=== PATIENT | female | born 1960 | race Hispanic/Latino ===

== ENCOUNTER 2017-07-29 11:54 | Outpatient (CLI) | payer BC | END 2017-07-29 11:55 | disposition home or self-care (01) | LOC: BICMAMMO 11:54 | PROVIDERS: ATTEND Internal Medicine | DX: Z12.31 Encounter for screening mammogram for malignant neoplasm of breast (principal) | CPT/HCPCS: 77067 ==

== ENCOUNTER 2017-11-15 13:39 | Outpatient (CLI) | payer BC ==
--- NOTE | 2017-11-15 15:56 | ULT ---
HEPATIC ULTRASOUND: 11/15/17 HISTORY: Abnormal liver function test. TECHNIQUE: Galvez scale images are obtained. Color doppler with spectral analysis performed on the hepatic vessels . Liver has normal echotexture and size. Doppler studies show normal flow in the hepatic vein, portal v eins, hepatic artery and splenic veins. Spleen is unremarkable in size and appearance. The patient is post cholecystectomy. The common bile duct is measured at 7 mm. Pancreas is partially imaged and appears unremarkable as visualized. Right kidney is not imaged. IMPRESSION: Unremarkable hepatic ultrasound and doppler. POS: [facility]
== END 2017-11-15 13:40 | disposition home or self-care (01) ==
LOC: BICULT 13:39
PROVIDERS: ATTEND Internal Medicine Gastroenterology
DX: R94.5 Abnormal results of liver function studies (principal)
CPT/HCPCS: 76705

== ENCOUNTER 2017-12-21 15:15 | Outpatient (CLI) | payer BC ==
--- NOTE | 2017-12-21 17:29 | ULT ---
RENAL ULTRASOUND: 12/21/17 HISTORY: Abnormality on left kidney on CT scan of 02/29/16. FINDINGS: The right kidney measures 11.6 cm in length and the left kidney measures 10.7 cm in length. No hydron ephrosis seen on either side. There is a 2 cm cyst in the inferior pole of the left kidney. The urina ry bladder is unremarkable with a volume of 131 mL. IMPRESSION: Left renal cyst. POS: [facility]
== END 2017-12-21 15:16 | disposition home or self-care (01) ==
LOC: BICULT 15:15
PROVIDERS: ATTEND Internal Medicine Gastroenterology
DX: K75.81 Nonalcoholic steatohepatitis (NASH) (principal); N28.89 Other specified disorders of kidney and ureter; N28.1 Cyst of kidney, acquired
CPT/HCPCS: 76770

== ENCOUNTER 2019-02-01 14:29 | Outpatient (CLI) | payer BC ==
--- NOTE | 2019-02-01 15:32 | MMO ---
Bilateral MAMMO Bilat Screen [facility]. CLINICAL HISTORY: Patient is 58 years old and is seen for screening. The patient has the following family history of breast cancer: sister, at age 70; sister, at age 54 and daughter, at age 38. The patient has no personal history of cancer. VIEWS: The views performed were: bilateral craniocaudal with tomosynthesis and bilateral mediolateral oblique with tomosynthesis. FILMS COMPARED: The present examination has been compared to prior imaging studies performed at [facility] on 10/02/2013, 06/24/2015, 06/24/2016 and 07/29/2017. This study has been interpreted with the assistance of computer-aided detection. MAMMOGRAM FINDINGS: The breasts are heterogeneously dense, which could obscure a lesion on mammography. There are no suspicious masses, suspicious calcifications, or new areas of architectural distortion. IMPRESSION: THERE IS NO MAMMOGRAPHIC EVIDENCE OF MALIGNANCY. A ROUTINE FOLLOW-UP MAMMOGRAM IN 1 YEAR IS RECOMMENDED. THE RESULTS OF THIS EXAM WERE SENT TO THE PATIENT. ACR BI-RADS Category 1 - Negative MAMMOGRAPHY NOTE: 1. A negative mammogram report should not delay a biopsy if a dominant of clinically suspicious mass is present. 2. Approximately 10% to 15% of breast cancers are not detected by mammography. 3. Adenosis and dense breasts may obscure an underlying neoplasm. Reported by: MIKAEL LUNA MD Electonically Signed: [id number]
--- NOTE | 2019-02-01 15:41 | BD ---
Exam: DEXA Bone Density 02/01/19 INDICATIONS: Postmenopausal screening. Lumbar Spine: BMD (g/cm2) T-SCORE L1 1.033 0.4 L2 1.061 0.3 L3 1.115 0.3 L4 1.221 1.5 L1-L4 1.122 0.7 Femoral Neck: 0.731 -1.1 Total Femur: 0.915 -0.2 Impression: 1. Bone mineral density of the femoral neck indicates osteopenia. 2. Bone mineral density of the lumbar spine within normal range. Ten year fracture risk: Major osteoporotic fracture: 5.1%. Hip fracture: 0.3%. POS: [facility]
== END 2019-02-01 14:30 | disposition home or self-care (01) ==
LOC: BICMAMMO 14:29
PROVIDERS: ATTEND Internal Medicine
DX: Z12.31 Encounter for screening mammogram for malignant neoplasm of breast (principal); Z13.820 Encounter for screening for osteoporosis; M85.859 Other specified disorders of bone density and structure, unspecified thigh; Z80.3 Family history of malignant neoplasm of breast
CPT/HCPCS: 77063; 77067; 77080

== ENCOUNTER 2020-04-09 10:19 | Outpatient (CLI) | payer BC ==
[2020-04-09 11:36] LABS: Bilirubin Neg (Negative); Blood, Urine Negative (Negative); Glucose, Urine (Dipstick) Normal (Negative); Ketone, Urine Negative (Negative); Leukocyte Negative (Negative); Nitrite Negative (Negative); Protein, Urine (Dipstick) Negative (Neg-Trace); Urobilinogen Normal mg/dL (Less than 2)
[2020-04-09 11:37] LABS: Clarity Clear (Clear)
[2020-04-09 11:50] LABS: #Eosinphils 0.1 10x3/uL (0.0-0.5); #Monocytes 0.6 10x3/uL (0.0-1.1); #Neutrophils 4.9 10x3/uL (1.5-8.4); %Basophils 0.3 % (0.0-2.0); %Eosinophils 0.5 % (0.0-6.0); %Lymphocytes 39.3 % (18.0-47.0); %Monocytes 6.6 % (0.0-10.0); Hemoglobin 14.3 g/dL (12.0-15.5); Mean Corpuscular HGB CONC 31.9 g/dL (32.0-36.0); Mean Corpuscular Hemoglobin 28.9 pg (27.0-33.0); Mean Corpuscular Volume 90.7 fl (81.6-98.3); Mean Platelet Volume 9.5 fl (7.4-10.4); Platelet Count 377 10x3/uL (150-450); Red Blood Cell (RBC) Count 4.94 10x6/uL (3.90-5.03); White Blood Cell (WBC) Count 9.2 10x3/uL (3.5-10.5)
[2020-04-09 11:52] LABS: ALT (SGPT) 23 U/L (8-55); AST (SGOT) 25 U/L (5-34); Albumin 4.6 g/dL (3.4-4.8); Alkaline Phosphatase 111 U/L (40-110); Anion Gap 15 mmol/L (10-20); BUN (Urea Nitrogen) 19 mg/dL (9.8-20.1); Bilirubin, Total 0.3 mg/dL (0.2-1.2); Calc. Creatinine Clearance 0 mL/min (70-130); Calcium 10.2 mg/dL (7.8-10.44); Carbon Dioxide 28 mmol/L (23-31); Chloride 103 mmol/L (98-107); Globulin 3.7 g/dL (2.4-3.5); Glucose 104 mg/dL (80-115); Potassium 4.1 mmol/L (3.5-5.1); Protein, Total 8.3 g/dL (5.8-8.1); Sodium 142 mmol/L (136-145)
[2020-04-09 12:04] LABS: Prothrombin Time 10.4 sec (9.5-12.1)
[2020-04-09 14:03] LABS: Bacteria/HPF None Seen HPF (None Seen); RBC/HPF None Seen HPF (0-3); Squamous Epithelial 0-3 HPF (0-3); WBC/HPF None Seen HPF (0-3)
[2020-04-09 17:36] LABS: Hemoglobin A1c 6.4 % (4.0-6.0)
[2020-04-09 21:49] LABS: SARS-CoV-2 PCR by NAA DETECTED (NotDetected)
== END 2020-04-09 10:20 | disposition home or self-care (01) ==
LOC: LABBT 10:19
PROVIDERS: ATTEND Orthopaedic Surgery
DX: U07.1 COVID-19 (principal); M17.0 Bilateral primary osteoarthritis of knee
CPT/HCPCS: 80053; 81001; 83036; 85025; 85610; 87081; 87635; 93005; 93010; U0003; U0005

== ENCOUNTER 2020-04-09 10:45 | Inpatient (IN) | payer BC ==
[2020-05-13] MEDS ORDERED: Fentanyl 100 MCG/2 ML VIAL ONE ×4 (05:49→09:21)
[2020-05-13] MEDS ORDERED: Tranexamic Acid 1,000 MG/10 ML VIAL ONE (06:12)
[2020-05-13] MEDS ORDERED: Vancomycin 1 GM/200 ML BAG ONE ×2 (06:12→06:13)
[2020-05-13] MEDS ORDERED: Sodium Chloride 0.9% 100 ML ONE (06:13)
[2020-05-13] MEDS ORDERED: Midazolam HCl 2 mg/2 ml Vial ONE (06:30)
[2020-05-13] MEDS ORDERED: Fentanyl 100 MCG/2 ML VIAL SLOW IVP PRN ×2 (07:13)
[2020-05-13] MEDS ORDERED: diphenhydrAMINE 25 MG CAP PO PRN ×2 (07:13→07:30)
[2020-05-13] MEDS ORDERED: Ondansetron PF 4 MG/2 ML Vial IVP PRN ×2 (07:13→07:30)
[2020-05-13] MEDS ORDERED: Zolpidem Tartrate 5 MG TAB PO PRN ×2 (07:13→07:30)
[2020-05-13] MEDS ORDERED: Acetaminophen 325 MG TAB PO PRN (07:13)
[2020-05-13] MEDS ORDERED: HYDROcodone/Acetaminophen 10/325 mg Tablet PO PRN ×2 (07:13)
[2020-05-13] MEDS ORDERED: Promethazine HCl 25 MG/ML VIAL IM PRN ×2 (07:13→07:30)
[2020-05-13] MEDS ORDERED: traMADol HCl 50 MG TAB PO PRN ×3 (07:15→07:30)
[2020-05-13] MEDS ORDERED: Lidocaine 1% PF 5 ML VIAL ONE (07:19)
[2020-05-13] MEDS ORDERED: ePHEDrine Sulfate 50 MG/10 ML VIAL ONE (07:19)
[2020-05-13] MEDS ORDERED: PROPOFOL 200 MG/20 ML VIAL ONE (07:19)
[2020-05-13] MEDS ORDERED: Dexamethasone 20 MG/5 ML VIAL ONE (07:19)
[2020-05-13] MEDS ORDERED: Ondansetron PF 4 MG/2 ML Vial ONE (07:19)
[2020-05-13] MEDS ORDERED: HYDROcodone/Acetaminophen 5/325 mg Tablet PO PRN (07:30)
[2020-05-13] MEDS ORDERED: diphenhydrAMINE 50 MG/ML VIAL IM PRN (07:30)
[2020-05-13] MEDS ORDERED: Promethazine HCl 25 MG SUPP PR PRN (07:30)
[2020-05-13] MEDS ORDERED: Bupivacaine 0.25% 10 ML VIAL EPIDURAL PRN (07:30)
[2020-05-13] MEDS ORDERED: Naloxone HCl 0.4 mg/ml Vial IVP PRN (07:30)
[2020-05-13] MEDS ORDERED: Naloxone HCl 0.4 mg/ml Vial IV PRN (07:30)
[2020-05-13] MEDS ORDERED: diphenhydrAMINE 50 MG/ML VIAL IVP PRN (07:30)
[2020-05-13] MEDS ORDERED: Hydrocerin (Eucerin) Cream 120 gm Jar TOP PRN (07:30)
[2020-05-13] MEDS ORDERED: Bupivacaine 0.25% HCL 30 ML VIAL ONE (09:20)
[2020-05-13] MEDS: sulfaSALAzine 500 MG TAB PO SCH ×3 (12:26→21:01)
[2020-05-13] MEDS: Metoprolol Tartrate 50 MG TAB PO SCH (12:26)
[2020-05-13] MEDS: Aspirin 81 mg Enteric Coated Tablet PO SCH ×2 (12:26→21:01)
[2020-05-13] MEDS: Rosuvastatin 10 MG TAB PO SCH (12:26)
[2020-05-13] MEDS: FLUoxetine HCl 20 MG CAP PO SCH (12:26)
[2020-05-13] MEDS: Hydrochlorothiazide 25 MG TAB PO SCH (12:26)
[2020-05-13] MEDS: Losartan 25 MG TAB PO SCH (12:26)
[2020-05-13] MEDS: Ketorolac Tromethamine 30 MG/ML VIAL IVP SCH ×3 (12:36→23:31)
[2020-05-13 12:44] VITALS: BMI 28.1
[2020-05-13] MEDS: Sodium Chloride 0.9% 1,000 ML IV SCH ×2 (13:36→16:28)
[2020-05-13] MEDS ORDERED: Ketorolac Tromethamine 30 MG/ML VIAL IVP SCH (14:00)
[2020-05-13] MEDS: CEFAZOLIN 2 GM in Premix Bag 1 BAG IVPB SCH ×2 (14:31→21:07)
[2020-05-13] MEDS: Gabapentin 100 MG CAP PO SCH (21:01)
[2020-05-14] MEDS: fentaNYL Citrate/PF 500 MCG, Bupivacaine 10 ML in Sodium Chloride 0.9% 80 ML EPIDURAL SCH ×2 (01:50→18:03)
[2020-05-14 05:40] LABS: Hemoglobin 10.3 g/dL (12.0-16.0); Mean Corpuscular HGB CONC 32.8 g/dL (32.0-36.0); Mean Corpuscular Volume 91.5 fL (78.0-98.0); Platelet Count 235 thou/uL (130-400); RBC Distribution Width 13.9 % (11.5-14.5); Red Blood Cell (RBC) Count 3.44 mill/uL (4.20-5.40); White Blood Cell (WBC) Count 11.5 thou/uL (4.8-10.8)
[2020-05-14] MEDS: Ketorolac Tromethamine 30 MG/ML VIAL IVP SCH ×3 (06:21→18:03)
[2020-05-14] MEDS: Sodium Chloride 0.9% 1,000 ML IV SCH ×2 (06:31→12:48)
[2020-05-14] MEDS: Multivitamin W/ Minerals 1 TAB PO SCH (09:30)
[2020-05-14] MEDS: Aspirin 81 mg Enteric Coated Tablet PO SCH ×2 (09:30→21:15)
[2020-05-14] MEDS: Rosuvastatin 10 MG TAB PO SCH (09:30)
[2020-05-14] MEDS: Ferrous Gluconate 324 MG TAB PO SCH ×2 (09:31→15:57)
[2020-05-14] MEDS: Losartan 25 MG TAB PO SCH (09:31)
[2020-05-14] MEDS: Metoprolol Tartrate 50 MG TAB PO SCH (09:31)
[2020-05-14] MEDS: FLUoxetine HCl 20 MG CAP PO SCH (09:32)
[2020-05-14] MEDS: Hydrochlorothiazide 25 MG TAB PO SCH (09:32)
[2020-05-14] MEDS: Senokot S 8.6-50 MG TAB PO SCH ×2 (09:32→21:15)
[2020-05-14] MEDS: HYDROcodone/Acetaminophen 5/325 mg Tablet PO PRN ×2 (09:33→15:57)
[2020-05-14] MEDS: sulfaSALAzine 500 MG TAB PO SCH ×3 (09:34→21:15)
[2020-05-14] MEDS: Gabapentin 100 MG CAP PO SCH (21:15)
[2020-05-15] MEDS: tiZANidine HCl 4 MG TAB PO PRN ×2 (00:14→21:31)
[2020-05-15] MEDS: Ketorolac Tromethamine 30 MG/ML VIAL IVP SCH ×2 (00:15→06:15)
[2020-05-15] MEDS: Sodium Chloride 0.9% 1,000 ML IV SCH ×3 (03:46→19:00)
[2020-05-15 05:56] LABS: Hemoglobin 9.3 g/dL (12.0-16.0); Mean Corpuscular HGB CONC 33.7 g/dL (32.0-36.0); Mean Corpuscular Hemoglobin 30.9 pg (27.0-31.0); Mean Corpuscular Volume 91.5 fL (78.0-98.0); Mean Platelet Volume 6.9 fL (7.4-10.4); Platelet Count 207 thou/uL (130-400); RBC Distribution Width 14.1 % (11.5-14.5); White Blood Cell (WBC) Count 8.8 thou/uL (4.8-10.8)
[2020-05-15] MEDS: Multivitamin W/ Minerals 1 TAB PO SCH (08:57)
[2020-05-15] MEDS: Ferrous Gluconate 324 MG TAB PO SCH ×2 (08:58→16:00)
[2020-05-15] MEDS: Senokot S 8.6-50 MG TAB PO SCH ×2 (09:00→21:29)
[2020-05-15] MEDS: FLUoxetine HCl 20 MG CAP PO SCH (09:00)
[2020-05-15] MEDS: Rosuvastatin 10 MG TAB PO SCH (09:01)
[2020-05-15] MEDS: sulfaSALAzine 500 MG TAB PO SCH ×3 (09:02→21:31)
[2020-05-15] MEDS: Hydrochlorothiazide 25 MG TAB PO SCH (09:02)
[2020-05-15] MEDS: Aspirin 81 mg Enteric Coated Tablet PO SCH ×2 (09:02→21:29)
[2020-05-15] MEDS: Losartan 25 MG TAB PO SCH (09:03)
[2020-05-15] MEDS: Metoprolol Tartrate 50 MG TAB PO SCH (09:03)
[2020-05-15] MEDS: HYDROcodone/Acetaminophen 5/325 mg Tablet PO PRN (13:20)
[2020-05-15] MEDS: fentaNYL Citrate/PF 500 MCG, Bupivacaine 10 ML in Sodium Chloride 0.9% 80 ML EPIDURAL SCH (13:32)
[2020-05-15] MEDS: Gabapentin 100 MG CAP PO SCH (21:28)
[2020-05-16] MEDS: Sodium Chloride 0.9% 1,000 ML IV SCH ×2 (05:36→14:25)
[2020-05-16 05:51] LABS: Hemoglobin 9.7 g/dL (12.0-16.0); Mean Corpuscular HGB CONC 33.5 g/dL (32.0-36.0); Mean Corpuscular Hemoglobin 30.7 pg (27.0-31.0); Mean Corpuscular Volume 91.7 fL (78.0-98.0); Platelet Count 220 thou/uL (130-400); RBC Distribution Width 14.1 % (11.5-14.5); Red Blood Cell (RBC) Count 3.16 mill/uL (4.20-5.40); White Blood Cell (WBC) Count 9.8 thou/uL (4.8-10.8)
[2020-05-16] MEDS: fentaNYL Citrate/PF 500 MCG, Bupivacaine 10 ML in Sodium Chloride 0.9% 80 ML EPIDURAL SCH (06:35)
[2020-05-16] MEDS: Multivitamin W/ Minerals 1 TAB PO SCH (09:07)
[2020-05-16] MEDS: FLUoxetine HCl 20 MG CAP PO SCH (09:07)
[2020-05-16] MEDS: Metoprolol Tartrate 50 MG TAB PO SCH (09:08)
[2020-05-16] MEDS: Losartan 25 MG TAB PO SCH (09:08)
[2020-05-16] MEDS: Ferrous Gluconate 324 MG TAB PO SCH (09:08)
[2020-05-16] MEDS: Senokot S 8.6-50 MG TAB PO SCH (09:08)
[2020-05-16] MEDS: Rosuvastatin 10 MG TAB PO SCH (09:08)
[2020-05-16] MEDS: Hydrochlorothiazide 25 MG TAB PO SCH (09:08)
[2020-05-16] MEDS: Aspirin 81 mg Enteric Coated Tablet PO SCH (09:08)
[2020-05-16] MEDS: HYDROcodone/Acetaminophen 5/325 mg Tablet PO PRN (10:21)
[2020-05-16] MEDS: sulfaSALAzine 500 MG TAB PO SCH (10:22)
[2020-05-16 18:14] VITALS: BP 118/76; TEMP 98.3
== END 2020-05-16 15:55 | disposition home health service (06) | DRG 462 ==
LOC: EDSTATUS 04-14 10:45 → SURG A 05-13 05:39 → SJJU 05-13 11:56
PROVIDERS: ADMIT Orthopaedic Surgery; ATTEND Orthopaedic Surgery
PROC: 0SRD0J9 Replacement of Left Knee Joint with Synthetic Substitute, Cemented, Open Approach (ICD-10-PCS; principal; 2020-05-13)
PROC: 0SRC0J9 Replacement of Right Knee Joint with Synthetic Substitute, Cemented, Open Approach (ICD-10-PCS; 2020-05-13)
DX: M17.0 Bilateral primary osteoarthritis of knee (principal); I10 Essential (primary) hypertension; E78.5 Hyperlipidemia, unspecified; F32.9 Major depressive disorder, single episode, unspecified; Z90.49 Acquired absence of other specified parts of digestive tract; Z90.710 Acquired absence of both cervix and uterus; Z79.899 Other long term (current) drug therapy
CPT/HCPCS: 36415; 85027; C1713; C1776; J0690; J1100; J1885; J2250; J2405; J2704; J3010; J3370; J3490; S0020

== ENCOUNTER 2020-05-08 15:10 | Outpatient (CLI) | payer BC ==
[2020-05-08 12:39] LABS: Bilirubin Neg (Negative); Blood, Urine Negative (Negative); Clarity Clear (Clear); Glucose, Urine (Dipstick) Normal (Negative); Ketone, Urine Negative (Negative); Leukocyte Negative (Negative); Nitrite Negative (Negative); Protein, Urine (Dipstick) Negative (Neg-Trace); Urobilinogen Normal mg/dL (Less than 2); pH, Urine 6.5 (5.0-9.0)
[2020-05-08 12:45] LABS: #Eosinphils 0.1 10x3/uL (0.0-0.5); #Monocytes 0.6 10x3/uL (0.0-1.1); %Basophils 0.2 % (0.0-2.0); %Eosinophils 0.9 % (0.0-6.0); %Lymphocytes 35.3 % (18.0-47.0); %Monocytes 7.2 % (0.0-10.0); %Neutrophils 56.1 % (40.0-75.0); Hemoglobin 14.3 g/dL (12.0-15.5); Mean Corpuscular HGB CONC 32.3 g/dL (32.0-36.0); Mean Corpuscular Hemoglobin 29.5 pg (27.0-33.0); Mean Corpuscular Volume 91.3 fl (81.6-98.3); Mean Platelet Volume 9.3 fl (7.4-10.4); Platelet Count 329 10x3/uL (150-450); RBC Distribution Width 14.7 % (11.5-14.5); Red Blood Cell (RBC) Count 4.85 10x6/uL (3.90-5.03); White Blood Cell (WBC) Count 8.8 10x3/uL (3.5-10.5)
[2020-05-08 12:57] LABS: Anion Gap 15 mmol/L (10-20); BUN (Urea Nitrogen) 22 mg/dL (9.8-20.1); Calc. Creatinine Clearance 0 mL/min (70-130); Calcium 10.1 mg/dL (7.8-10.44); Carbon Dioxide 29 mmol/L (23-31); Chloride 100 mmol/L (98-107); Glucose 122 mg/dL (80-115); Potassium 4.3 mmol/L (3.5-5.1); Sodium 140 mmol/L (136-145)
[2020-05-08 12:59] LABS: RBC/HPF None Seen HPF (0-3)
[2020-05-08 13:11] LABS: INR-International Normal Ratio 0.9; Prothrombin Time 10.3 sec (9.5-12.1)
== END 2020-05-08 15:11 | disposition home or self-care (01) ==
LOC: LABBT 15:10
PROVIDERS: ATTEND Orthopaedic Surgery
DX: Z01.818 Encounter for other preprocedural examination (principal); M17.0 Bilateral primary osteoarthritis of knee
CPT/HCPCS: 80048; 81001; 85025; 85610; 87081

== ENCOUNTER 2020-08-07 06:51 | Outpatient (CLI) | payer BC | END 2020-08-07 06:52 | disposition home or self-care (01) | LOC: BICULT 06:51 | PROVIDERS: ATTEND Internal Medicine | DX: R74.8 Abnormal levels of other serum enzymes (principal); K76.0 Fatty (change of) liver, not elsewhere classified; Z90.49 Acquired absence of other specified parts of digestive tract | CPT/HCPCS: 93975 ==

== ENCOUNTER 2020-11-19 15:45 | Outpatient (CLI) | payer BC | END 2020-11-19 15:46 | disposition home or self-care (01) | LOC: BICMAMMO 15:45 | PROVIDERS: ATTEND Internal Medicine | DX: Z12.31 Encounter for screening mammogram for malignant neoplasm of breast (principal); Z80.3 Family history of malignant neoplasm of breast | CPT/HCPCS: 77063; 77067 ==

== ENCOUNTER 2021-03-11 17:01 | Outpatient (CLI) | payer BC | END 2021-03-11 17:02 | disposition home or self-care (01) | LOC: SCSRAD 17:01 | PROVIDERS: ATTEND Internal Medicine | DX: R05.9 Cough, unspecified (principal) | CPT/HCPCS: 71046 ==

== ENCOUNTER 2023-03-07 15:22 | Outpatient (CLI) | payer BC | END 2023-03-07 15:23 | disposition home or self-care (01) | LOC: BICRAD 15:22 | PROVIDERS: ATTEND Internal Medicine | DX: M50.121 Cervical disc disorder at C4-C5 level with radiculopathy (principal); M50.122 Cervical disc disorder at C5-C6 level with radiculopathy; M47.26 Other spondylosis with radiculopathy, lumbar region; M46.06 Spinal enthesopathy, lumbar region; M89.38 Hypertrophy of bone, other site; M41.9 Scoliosis, unspecified | CPT/HCPCS: 72040; 72100 ==

== ENCOUNTER 2023-03-22 14:21 | Outpatient (CLI) | payer BC | END 2023-03-22 14:22 | disposition home or self-care (01) | LOC: SCSMRI 14:21 | PROVIDERS: ATTEND Internal Medicine | DX: M47.22 Other spondylosis with radiculopathy, cervical region (principal); M47.26 Other spondylosis with radiculopathy, lumbar region; M51.16 Intervertebral disc disorders with radiculopathy, lumbar region; M48.061 Spinal stenosis, lumbar region without neurogenic claudication; M48.07 Spinal stenosis, lumbosacral region; M51.37 Other intervertebral disc degeneration, lumbosacral region | CPT/HCPCS: 72141; 72148 ==